=== PATIENT | female | born 1950 | race Caucasian/White ===

== ENCOUNTER 2018-11-29 20:18 | Emergency (ER) | payer BC, OTHER ==
[~2018-11-29] VITALS: Ht 154.9 cm; Wt 63.5 kg
[2018-11-29 20:25] VITALS: BP_SYST 136
[2018-11-29] MEDS ORDERED: KETOROLAC TROMETHAMINE 60 MG/2 ML VIAL IM ONE (20:45)
[2018-11-29] MEDS ORDERED: MORPHINE 4 MG/ML INJ. SYRINGE IM ONE (21:15)
[2018-11-29] MEDS ORDERED: ONDANSETRON HCL 4 MG/2 ML VIAL IM ONE (21:15)
[2018-11-29 21:44] VITALS: BP_SYST 136
[2018-11-29] MEDS ORDERED: NACL 0.9% 1,000 ML IV ONE (21:48)
[2018-11-29] MEDS ORDERED: MORPHINE 4 MG/ML INJ. SYRINGE IVP ONE (22:00)
[2018-11-29] MEDS ORDERED: ASPIRIN 81 MG TAB.CHEW PO ONE (22:00)
[2018-11-29] MEDS ORDERED: ONDANSETRON HCL 4 MG/2 ML VIAL IVP ONE (22:00)
== END 2018-11-29 21:44 | disposition home or self-care (01) ==
LOC: SED 20:18
DX: M54.41 Lumbago with sciatica, right side (principal); G89.29 Other chronic pain; E78.00 Pure hypercholesterolemia, unspecified; R03.0 Elevated blood-pressure reading, without diagnosis of hypertension; Z90.710 Acquired absence of both cervix and uterus
CPT/HCPCS: 72100; 96372; 99283; J1885; J2270; J2405

== ENCOUNTER 2019-09-13 05:31 | Emergency (ER) | payer BC, OTHER ==
[~2019-09-13] VITALS: Ht 154.9 cm; Wt 65.8 kg
[2019-09-13 05:31] VITALS: BP_SYST 177
--- NOTE | 2019-09-13 05:40 | NUR ---
Patient to ER bed 1 to gown for evaluation. Side rails up.
--- NOTE | 2019-09-13 05:46 | NUR ---
Dr. Kennedy bedside for Pt eval
[2019-09-13] MEDS ORDERED: OLME1TAB40 PO (05:50)
[2019-09-13] MEDS ORDERED: MORPHINE 2 MG/ML INJ. SYRINGE IVP ONE ×2 (06:00→08:00)
[2019-09-13] MEDS ORDERED: ONDANSETRON HCL 4 MG/2 ML VIAL IVP ONE ×2 (06:00→08:00)
--- NOTE | 2019-09-13 06:00 | NUR ---
Pt BIB family to ED C/O epigastric abdominal pain, nausea and chest pain. Pt describes her abd pain as "hard". It is 2 weeks old, and was initially intermittent. It worsened last night becoming constant and keeping her awake. Accompanied by nausea. Approx. hour [employer]IDEO [employer] she noticed precordial chest pain. It is mild, lingering pressure-like sensation. There are no alleviating or exacerbating factors with regard to her chest pain or her abdominal pain. No other complaints and or injuries noted. VSS with SBP in 170s, no s/s of acute distress. Resting on gurney with rails up
[2019-09-13 06:03] LABS: BILIRUBIN,URINE NEGATIVE (NEGATIVE); BLOOD, URINE 3+ (NEGATIVE); COLOR,URINE YELLOW (YELLOW); GLUCOSE,URINE NEGATIVE (NEGATIVE); KETONES,URINE NEGATIVE (NEGATIVE); LEUKOCYTE ESTERASE ,URINE 1+ (NEGATIVE); NITRITE, URINE NEGATIVE (NEGATIVE); PROTEIN URINE NEGATIVE (NEGATIVE); UROBILINOGEN,URINE 0.2 (0.2-1.0)
[2019-09-13 06:05] LABS: CLARITY/URINE SLIGHTLY HAZY (CLEAR)
--- NOTE | 2019-09-13 06:05 | NUR ---
Pt taken to Radiology in stable condition
[2019-09-13 06:20] LABS: BACTERIA,URINE FEW /HPF (None Seen)
--- NOTE | 2019-09-13 06:25 | NUR ---
Back from Radiology well tolerated
[2019-09-13 06:41] LABS: BASOPHILS # (AUTO) 0.1 K/uL (0.0-0.2); BASOPHILS % (AUTO) 1.2 % (0.0-2.0); EOSINOPHILS # (AUTO) 0.1 K/uL (0.0-0.4); HEMATOCRIT 37.4 % (36-48); HEMOGLOBIN 12.8 g/dL (12.0-16.0); LYMPHOCYTES # (AUTO) 0.9 K/uL (1.0-5.5); LYMPHOCYTES % (AUTO) 17.4 % (20.5-51.5); MEAN CORPUSCULAR HEMOGLOBIN 30 pg (27-31); MEAN CORPUSCULAR HGB CONC 34 % (32-36); MEAN CORPUSCULAR VOLUME 87 fL (79.0-98.0); MONOCYTES # (AUTO) 0.5 K/uL (0.0-1.0); MONOCYTES % (AUTO) 8.8 % (1.7-9.3); NEUTROPHILS # (AUTO) 3.8 K/uL (1.8-7.7); NEUTROPHILS % (AUTO) 70.6 % (40.0-70.0); PLATELET COUNT (AUTO) 223 K/uL (130-430); RED BLOOD CELL COUNT(AUTO) 4.32 MIL/uL (4.2-6.2); RED CELL DISTRIBUTION WIDTH 13.2 % (9.0-15.0); WHITE BLOOD COUNT (AUTO) 5.4 K/uL (4.8-10.8)
[2019-09-13 07:06] LABS: ANION GAP 5 (5-15); CALCIUM 8.4 mg/dL (8.4-11.0); CHLORIDE 99 mmol/L (98-107); CREATININE 0.64 mg/dL (0.55-1.30); GLUCOSE 114 mg/dL (70-99); POTASSIUM 3.7 mmol/L (3.5-5.1); SODIUM SERUM 133 mmol/L (136-145); UREA NITROGEN, BLOOD 12 mg/dL (8-21)
[2019-09-13 07:10] LABS: ALANINE AMINOTRANSFERASE 19 U/L (12-78); ALBUMIN 3.2 g/dL (3.4-4.8); ASPARTATE AMINOTRANSFERASE 16 U/L (10-37); LIPASE 135 U/L (73-393); TOTAL BILIRUBIN 0.4 mg/dL (0.0-1.0)
--- NOTE | 2019-09-13 07:10 | NUR ---
Report from Paul SOLARES.
[2019-09-13] MEDS ORDERED: ASPIRIN 81 MG TAB.CHEW PO ONE (07:15)
[2019-09-13] MEDS ORDERED: NITROFURANTOIN MONOHYD/M-CRYST 100 MG CAPSULE PO ONE (07:15)
--- NOTE | 2019-09-13 07:15 | NUR ---
Venkat rene in ED - 09/13/19 at 0751 by SDEDTD Patient asleep, Mother of patient at bedside.
--- NOTE | 2019-09-13 07:15 | NUR ---
Patient asleep, of patient at bedside
[2019-09-13] MEDS ORDERED: ASPIRIN 81 MG TAB.CHEW ONE (07:45)
[2019-09-13 08:35] VITALS: BP_SYST 119
--- NOTE | 2019-09-13 08:35 | NUR ---
Patient signed AMA form, discontinued monitor and IV.
--- NOTE | 2019-09-13 09:03 | NUR ---
Patient does not wish to proceed with medical care recommended by DR. NARANJO. Patient given information related to possible complications, up to and including , which could occur as a result of leaving hospital at this time. Patient verbalizes understanding of risks involved leaving against medical advice. Patient has signed AMA form.
== END 2019-09-13 09:03 | disposition left against medical advice (07) ==
LOC: SED 05:31
DX: R10.13 Epigastric pain (principal); R11.10 Vomiting, unspecified; R07.9 Chest pain, unspecified; E78.00 Pure hypercholesterolemia, unspecified; I10 Essential (primary) hypertension; Z88.0 Allergy status to penicillin; Z79.899 Other long term (current) drug therapy
CPT/HCPCS: 36415; 71045; 74176; 80053; 81000; 83605; 83690; 83880; 84484; 85025; 87086; 93005; 96374; 96375; 99284; J2270; J2405